=== PATIENT | female | born 1995 | race Caucasian/White ===

== ENCOUNTER → 2016-12-25 | Outpatient (CLI) | payer OTHER | END | disposition home or self-care (01) | LOC: LABWHC1 11:54 | PROVIDERS: ATTEND Obstetrics & Gynecology | DX: Z34.92 Encounter for supervision of normal pregnancy, unspecified, second trimester (principal); Z3A.00 Weeks of gestation of pregnancy not specified | CPT/HCPCS: 36415; 84702 ==

== ENCOUNTER → 2016-12-27 | Outpatient (CLI) | payer OTHER | END | disposition home or self-care (01) | LOC: LABWHC1 13:58 | PROVIDERS: ATTEND Obstetrics & Gynecology | DX: O26.90 Pregnancy related conditions, unspecified, unspecified trimester (principal); Z3A.00 Weeks of gestation of pregnancy not specified | CPT/HCPCS: 36415; 84702 ==

== ENCOUNTER → 2017-03-03 | Outpatient (CLI) | payer OTHER | END | disposition home or self-care (01) | LOC: LABWHC1 15:41 | PROVIDERS: ATTEND Obstetrics & Gynecology | DX: O03.9 Complete or unspecified spontaneous abortion without complication (principal) | CPT/HCPCS: 36415; 84702 ==

== ENCOUNTER → 2017-03-20 | Outpatient (CLI) | payer OTHER ==
--- NOTE | 2017-03-20 17:58 | US ---
EXAMINATION TYPE: US OB >= 14 wk fetus DATE OF EXAM: 03/20/2017 4:09 PM COMPARISON: None CLINICAL HISTORY: O46.91 First Trimester Bleeding. 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 6 oz. WEIGHT PERCENTAGE BASED ON ESTABLISHED DATES: N/A HC/AC: 1.2 Normal FL/AC: 20 Normal HEART RATE: 139 bpm RHYTHM: Normal IMPRESSION: 1. Single intrauterine gestation estimated at 17 0 days gestation based on current ultrasound measure ments. This would have a calculated EDC of 08/28/2017. Cardiac activity at the time this exams 139 bpm . 2. Placenta previa does not appear to be present. Low-lying placenta could be considered. 3. small parts are incompletely evaluated during this exam.
== END | disposition home or self-care (01) ==
LOC: RADUSWWP 15:17
PROVIDERS: ATTEND Obstetrics & Gynecology
DX: O46.91 Antepartum hemorrhage, unspecified, first trimester (principal); Z3A.17 17 weeks gestation of pregnancy
CPT/HCPCS: 76805

== ENCOUNTER → 2017-03-20 | Outpatient (CLI) | payer OTHER ==
[2017-03-20 10:38] LABS: CHCM 34.2; HDW 2.38; HGB 13.4 gm/dL (11.4-16.0); MCHC 35.2 g/dL (31.0-37.0); Mean Platelet Volume 6.5; RBC 4.17 m/uL (3.80-5.40); RDW 13.1 % (11.5-15.5); WBC 12.6 k/uL (4.0-11.0)
[2017-03-20 11:11] LABS: Glucose 84 mg/dL (74-99); Non-African American GFR(MDRD) >60 (>60 ml/min/1.73 sqM)
[2017-03-20 11:38] LABS: Hepatitis B Surface Ag Index 0.07
[2017-03-20 11:52] LABS: HCG,Quantitative Serum 21619.4 mIU/mL
[2017-03-21 04:37] LABS: Toxoplasma Antibody (IgG) <3.0 IU/mL (<7.2)
[2017-03-21 08:07] LABS: HIV-1/HIV-2 Ab Screen NONREAC (NON REAC)
== END | disposition home or self-care (01) ==
LOC: LABWHC1 10:19
PROVIDERS: ATTEND Obstetrics & Gynecology
DX: Z34.90 Encounter for supervision of normal pregnancy, unspecified, unspecified trimester (principal)
CPT/HCPCS: 36415; 82565; 82947; 84702; 85027; 86762; 86777; 86778; 86780; 86850; 86900; 86901; 87340; 87389

== ENCOUNTER → 2017-06-02 | Outpatient (CLI) | payer OTHER ==
[2017-06-02 12:09] LABS: CH 31.3; CHCM 34.3; HCT 36.3 % (34.0-46.0); HDW 2.52; HGB 12.4 gm/dL (11.4-16.0); MCH 31.3 pg (25.0-35.0); MCHC 34.2 g/dL (31.0-37.0); MCV 91.7 fL (80.0-100.0); Mean Platelet Volume 6.7; RBC 3.96 m/uL (3.80-5.40); RDW 12.9 % (11.5-15.5); WBC 13.7 k/uL (4.0-11.0)
== END | disposition home or self-care (01) ==
LOC: LABWHC1 10:32
PROVIDERS: ATTEND Obstetrics & Gynecology
DX: Z34.82 Encounter for supervision of other normal pregnancy, second trimester (principal); Z3A.00 Weeks of gestation of pregnancy not specified
CPT/HCPCS: 36415; 82950; 85027

== ENCOUNTER 2017-08-28 06:03 | Inpatient (IN) | payer OTHER ==
[2017-08-28 06:20] VITALS: BMI 27.1
--- NOTE | 2017-08-28 06:20 | P.HPOB ---
History of Present Illness H&P Date: 08/28/17 Chief Complaint: Elective induction. This patient is a pleasant 21-year-old 2 para 1 female estimated date of confinement 08/28/2017 estimated gestational age 40-0/7 weeks who presents to labor and delivery for requested induction of labor. Patient's care is complicated by late to seek care. Patient also most recently had concerns about STD exposure and was treated with Zithromax although cultures have been negative. otherwise has been uncomplicated. Review of Systems All systems: negative Constitutional: Denies chills, Denies fever Eyes: denies blurred vision, denies pain Ears, nose, mouth and throat: Denies headache, Denies sore throat Cardiovascular: Denies chest pain, Denies shortness of breath Respiratory: Denies cough Gastrointestinal: Denies abdominal pain, Denies diarrhea, Denies nausea, Denies vomiting Genitourinary: Denies dysuria, Denies hematuria Musculoskeletal: Denies myalgias Integumentary: Denies pruritus, Denies rash Neurological: Denies numbness, Denies weakness Psychiatric: Denies anxiety, Denies depression Endocrine: Denies fatigue, Denies weight change Past Medical History Additional Past Medical History / Comment(s): stomach ulcers History of Any Multi-Drug Resistant Organisms: None Reported Past Surgical History: No Surgical Hx Reported Past Anesthesia/Blood Transfusion Reactions: No Reported Reaction Past Psychological History: No Psychological Hx Reported Smoking Status: Current every day smoker Past Alcohol Use History: Occasional Past Drug Use History: None Reported Medications and Allergies Home Medications Medication Instructions Recorded Confirmed Type Pnv,Calcium 72/Iron/Folic Acid 1 tab PO ONCE 08/28/17 08/28/17 History [ Plus Tablet] Allergies Allergy/AdvReac Type Severity Reaction Status Date / Time Penicillins Allergy Anaphylaxis Verified 08/28/17 06:12 Exam - Vital Signs Vital signs: Intake and Output 08/27/17 08/27/17 08/28/17 14:59 22:59 06:59 Other: Weight 73.936 kg Patient Weight 08/28/17 06:59 Weight 73.936 kg - OBG Physical Exam Abdomen: bowel sounds normal, no diffuse tenderness, no bruit present, no guarding noted, no hepatomegaly, no splenomegaly, no mass Vagina: normal moisture, no discharge Cervix: Cervix in the office was 2 cm dilated. Cervix: no lesion, no discharge Uterus: enlarged (Fundal height is 38 cm.) Results blood work shows she is A positive, rubella immune, RPR nonreactive, hepatitis B negative, group B strep was negative, ultrasounds have been normal, Glucola was normal. Assessment and Plan (1) Third trimester Narrative/Plan: This is a pleasant 21-year-old 2 para 1 female 40-0/7 weeks gestation who is admitted to labor and delivery for requested induction of labor. Plan is induction of labor and anticipate vaginal delivery. Status: Acute (2) Elective induction of labor planned Status: Acute
[2017-08-28] MEDS: LACTATED RINGERS 1,000 ML IV SCH ×2 (06:23→12:19)
[2017-08-28] MEDS ORDERED: OXYTOCIN 20 UNITS/1000 ML NS 1,000 ML IV SCH ×2 (06:23→15:05)
[2017-08-28] MEDS ORDERED: TERBUTALINE 1 MG/ML VIAL SQ PRN (06:23)
[2017-08-28] MEDS ORDERED: OXYTOCIN 10 UNIT/ML 1 ML VIAL IM PRN (06:23)
[2017-08-28] MEDS ORDERED: CARBOPROST TROMETHAMINE 250 MCG/ML 1 ML AMP IM PRN (06:23)
[2017-08-28] MEDS ORDERED: LIDOCAINE 1% (PF) 10 MG/ML (30 ML SDV) SQ PRN (06:23)
[2017-08-28] MEDS ORDERED: METHYLERGONOVINE 0.2 MG/ML 1 ML AMP IM PRN (06:23)
[2017-08-28 06:39] LABS: Basophils % (A) 0 %; CH 30.7; CHCM 33.9; Eosinophils # (A) 0.1 k/uL (0-0.7); Eosinophils % (A) 1 %; HCT 37.5 % (34.0-46.0); HDW 3.11; HGB 12.8 gm/dL (11.4-16.0); Luc # (Auto) 0.28; Luc % (Auto) 2; Lymphocytes # (A) 2.7 k/uL (1.0-4.8); Lymphocytes % (A) 20 %; MCH 31.1 pg (25.0-35.0); MCHC 34.2 g/dL (31.0-37.0); MCV 90.9 fL (80.0-100.0); Mean Platelet Volume 7.2; Monocytes # (A) 0.7 k/uL (0-1.0); Monocytes % (A) 5 %; Neutrophils # (A) 9.8 k/uL (1.3-7.7); Neutrophils % (A) 72 %; RBC 4.13 m/uL (3.80-5.40); RDW 13.3 % (11.5-15.5); WBC 13.6 k/uL (4.0-11.0); WBC (Perox) 14.03
[2017-08-28] MEDS ORDERED: fentaNYL (PF) 50 MCG/ML 5 ML AMP ONE (12:26)
[2017-08-28] MEDS ORDERED: SODIUM CHLORIDE 0.9% 100 ML BAG ONE (12:26)
[2017-08-28] MEDS ORDERED: BUPIVACAINE (PF) 0.25% 30 ML VIAL ONE (12:26)
[2017-08-28] MEDS ORDERED: ACETAMINOPHEN TAB 325 MG TAB PO PRN (15:05)
[2017-08-28] MEDS ORDERED: WITCH HAZEL 1 EACH MED..PAD TOPICAL PRN (15:05)
[2017-08-28] MEDS ORDERED: LANOLIN CREAM 5 GM TUBE TOPICAL PRN (15:05)
[2017-08-28] MEDS ORDERED: Acetaminophen-Codeine 300-30mg TAB PO PRN ×2 (15:05)
[2017-08-28] MEDS ORDERED: BISACODYL 10 MG SUPP RECTAL PRN (15:05)
[2017-08-28] MEDS ORDERED: ZOLPIDEM 5 MG TAB PO PRN (15:05)
[2017-08-28] MEDS ORDERED: IBUPROFEN 600 MG TAB PO PRN (15:05)
[2017-08-28] MEDS ORDERED: diphenhydrAMINE 25 MG CAP PO PRN (15:05)
[2017-08-28] MEDS ORDERED: HYDROCORTISONE 2.5% RECTAL CREAM 30 GM TUBE RECTAL PRN (15:05)
[2017-08-28] MEDS ORDERED: BENZOCAINE/MENTHOL SPRAY 1 GM/SPRAY AEROSOL TOPICAL PRN (15:05)
[2017-08-28] MEDS ORDERED: SIMETHICONE 80 MG CHEWABLE PO PRN (15:05)
[2017-08-28] MEDS ORDERED: diphenhydrAMINE 50 MG/ML 1 ML VIAL IVP PRN (15:05)
[2017-08-28 17:15] VITALS: RESP 16
--- NOTE | 2017-08-28 17:44 | P.PROBDLV ---
Vaginal Delivery Note - . Vaginal Delivery Note: Normal vaginal delivery viable male infant Apgars 9 and 9 delivery time is 1407 hrs. Please see dictated H&P for intimate details of this patient's admission. Brief summary this pleasant 21-year-old 2 para 1 female 40-0/7 weeks gestation admitted to labor and delivery for requested induction of labor. Patient is 2-3 cm dilated has artificial rupture membranes for clear fluid. Patient does receive an epidural for pain control with some relief. Labor progresses quickly thereafter she is to complete pushes the head to the perineum. Posterior perineum is supported we have controlled delivery of the infant's head over the intact perineum. Mouth and nares are bulb suctioned. There is no evidence of nuchal cord. Gentle downward traction we have delivery the anterior and posterior shoulder and rest this infant's body. This is a vigorous viable male Apgars are 9 and 9 delivery time is 1407 hrs. After delivery of the the umbilical cord is doubly clamped and cut appears to be trivascular. The placenta is then spontaneously delivered intact. Estimated blood loss 100 mL. No lacerations and no repairs required. All counts are correct 3.
[2017-08-29 01:16] VITALS: TEMP 98.3
[2017-08-29] MEDS: SENNOSIDES-DOCUSATE SODIUM 1 EACH TAB PO SCH ×2 (01:16→04:29)
--- NOTE | 2017-08-29 05:51 | P.PNOBGVD ---
Subjective - Subjective Patient reports: Reports appetite normal, Reports voiding normally, Reports pain well controlled, Reports ambulating normally : doing well Objective - Latest Vital Signs Latest vital signs: Vital Signs Temp Pulse Resp BP Pulse Ox 08/29/17 00:00 98.3 F 59 L 16 108/59 08/28/17 20:00 98.4 F 70 16 115/74 08/28/17 16:15 97.5 F L 65 16 108/68 08/28/17 15:46 72 14 105/58 08/28/17 15:15 69 16 108/55 08/28/17 15:00 82 16 126/78 08/28/17 14:46 76 14 117/83 08/28/17 14:30 90 14 135/88 08/28/17 14:15 96.7 F L 57 L 14 125/97 08/28/17 06:16 96 F L 57 L 16 124/70 98 Intake and Output 08/28/17 08/28/17 08/29/17 14:59 22:59 06:59 Output Total 100 Balance -100 Output: Urine 100 Other: # Voids 1 1 - Exam Lungs: bilateral: normal Chest: Normal S1, Normal S2 Extremities: Present: normal Abdomen: Present: normal appearance, soft Uterus: Present: normal, firm - Labs Labs: Abnormal Lab Results - Last 24 Hours (Table) 08/28/17 Range/Units 06:20 WBC 13.6 H (4.0-11.0) k/uL Neutrophils # 9.8 H (1.3-7.7) k/uL Assessment and Plan (1) Third trimester Narrative/Plan: day #1. Patient is resting without complaints and wishes to go home. Vital signs are stable and she is afebrile. Uterus is firm nontender she 's having normal lochia. My impression is this is a normal course. Plan is to continue routine care discharge home later today. Current Visit: Yes Status: Acute Code(s): Z34.93 - ENCNTR FOR SUPRVSN OF NORMAL PREG, UNSP, THIRD TRIMESTER SNOMED Code(s): 90318395 (2) Elective induction of labor planned Current Visit: Yes Status: Acute Code(s): IHG5708 - SNOMED Code(s): 927830280
--- NOTE | 2017-08-29 05:52 | P.DS ---
Providers Date of admission: 08/28/17 06:03 Expected date of discharge: 08/29/17 Attending physician: Philip Flores Primary care physician: Stated None - Discharge Diagnosis(es) (1) Third trimester Current Visit: Yes Status: Acute (2) Elective induction of labor planned Current Visit: Yes Status: Acute Hospital Course: Please see dictated H&P for intimate details of this patient's admission. Brief summary this is a pleasant 21-year-old 2 para 1 female 40 weeks gestation admitted to labor and delivery for requested induction of labor. Patient is admitted and goes on to have a vaginal delivery viable male . Please see dictated delivery note. Patient's felt be stable for discharge home on day #1 follow up with me in 6 weeks. Procedures: Normal vaginal delivery. Patient Condition at Discharge: Good Plan - Discharge Summary New Discharge Prescriptions: New Acetaminophen-Codeine 300-30mg [Tylenol w/codeine #3] 1 - 2 each PO Q4HR PRN #30 tab PRN Reason: Mild Pain exceeding Tylenol Ibuprofen [Motrin] 600 mg PO Q6HR PRN #40 tab PRN Reason: Mild Pain Or Fever >= 100.5 No Action Pnv,Calcium 72/Iron/Folic Acid [ Plus Tablet] 1 tab PO ONCE Discharge Medication List Pnv,Calcium 72/Iron/Folic Acid [ Plus Tablet] 1 tab PO ONCE 08/28/17 [ History] Acetaminophen-Codeine 300-30mg [Tylenol w/codeine #3] 1 - 2 each PO Q4HR PRN # 30 tab 08/29/17 [Rx] Ibuprofen [Motrin] 600 mg PO Q6HR PRN #40 tab 08/29/17 [Rx] Follow up Appointment(s)/Referral(s): Philip Flores MD [STAFF PHYSICIAN] - 6 Weeks Patient Instructions/Handouts: Vaginal Delivery (DC) Activity/Diet/Wound Care/Special Instructions: No intercourse or anything per vagina for 6 weeks. Please call if any fever, chills, excessive vaginal bleeding, and/or abdominal pain. Discharge Disposition: HOME SELF-CARE
[2017-08-29 07:58] VITALS: BP 114/69; PULSE 55
== END 2017-08-29 16:10 | disposition home or self-care (01) | DRG 560 ==
LOC: 4FBP 06:03
PROVIDERS: ADMIT Obstetrics & Gynecology; ATTEND Obstetrics & Gynecology
PROC: 00HU33Z Insertion of Infusion Device into Spinal Canal, Percutaneous Approach (ICD-10-PCS; principal; 2017-08-28)
PROC: 3E0R3BZ Introduction of Anesthetic Agent into Spinal Canal, Percutaneous Approach (ICD-10-PCS; principal; 2017-08-28)
PROC: 10E0XZZ Delivery of Products of Conception, External Approach (ICD-10-PCS; principal; 2017-08-28)
PROC: 10907ZC Drainage of Amniotic Fluid, Therapeutic from Products of Conception, Via Natural or Artificial Opening (ICD-10-PCS; principal; 2017-08-28)
DX: O48.0 Post-term pregnancy (principal); F17.200 Nicotine dependence, unspecified, uncomplicated; Z37.0 Single live birth; O99.334 Smoking (tobacco) complicating childbirth; Z3A.40 40 weeks gestation of pregnancy; Z88.0 Allergy status to penicillin
CPT/HCPCS: 85025; 88307

== ENCOUNTER 2018-12-11 13:39 | Emergency (ER) | payer OTHER ==
[2018-12-11 13:47] VITALS: TEMP 98.8
[2018-12-11] MEDS ORDERED: SODIUM CHLORIDE 0.9% 1,000 ML IV STA (14:02)
[2018-12-11] MEDS ORDERED: ONDANSETRON 4 MG/2 ML VIAL IVP STA (14:02)
[2018-12-11] MEDS ORDERED: ACETAMINOPHEN IV (For NPO) 1,000 MG in EMPTY BAG 1 BAG IVPB STA (14:06)
--- NOTE | 2018-12-11 14:21 | ED ---
General Adult HPI - General Chief complaint: Abdominal Pain Stated complaint: Lower abd pain, fever Time Seen by Provider: 12/11/18 13:59 Source: patient, RN notes reviewed Mode of arrival: ambulatory Limitations: no limitations - History of Present Illness Initial comments: Patient 23-year-old female presented to the emergency room today with a chief complaint abdominal pain that started yesterday. Patient does admit to pain on the right side of the abdomen. She states that she has felt nauseated. States appetites been decreased. States that when she eats symptoms seemed to increase. Patient denies any other complaints or symptoms currently. Patient denies any recent fever, chills, shortness of breath, chest pain, back pain, numbness or tingling, headaches or visual changes, or any other complaints. - Related Data Home Medications Medication Instructions Recorded Confirmed Escitalopram [Lexapro] 10 mg PO DAILY 12/11/18 12/11/18 Previous Rx's Medication Instructions Recorded Ciprofloxacin HCl [Cipro] 500 mg PO Q12HR #20 day 12/11/18 Allergies Allergy/AdvReac Type Severity Reaction Status Date / Time Penicillins Allergy Anaphylaxis Verified 12/11/18 13:53 Review of Systems ROS Statement: Those systems with pertinent positive or pertinent negative responses have been documented in the HPI. ROS Other: All systems not noted in ROS Statement are negative. Past Medical History Additional Past Medical History / Comment(s): stomach ulcers History of Any Multi-Drug Resistant Organisms: None Reported Past Surgical History: No Surgical Hx Reported Past Anesthesia/Blood Transfusion Reactions: No Reported Reaction Past Psychological History: No Psychological Hx Reported Smoking Status: Current every day smoker Past Alcohol Use History: Occasional Past Drug Use History: None Reported - Past Family History Mother Family Medical History: No Reported History General Exam - General Exam Comments Initial Comments: General: The patient is awake and alert, in no distress, and does not appear acutely ill. Eye: There is normal conjunctiva bilaterally. No signs of icterus. Ears, nose, mouth and throat: There are moist mucous membranes and no oral lesions. Neck: The neck is supple, there is no tenderness or JVD. Cardiovascular: There is a regular rate and rhythm. No murmur, rub or gallop is appreciated. Respiratory: Lungs are clear to auscultation, respirations are non-labored, breath sounds are equal. No wheezes, stridor, rales, or rhonchi. Gastrointestinal: Abdomen is soft on palpation. Patient does have tenderness both in the right upper and right lower quadrants. No rebound, guarding or CVA tenderness. Musculoskeletal: Normal ROM, no tenderness. Strength 5/5. Sensation intact. Pulses equal bilaterally 2+. Neurological: A&O x 3. CN II-XII intact, There are no obvious motor or sensory deficits. Coordination appears grossly intact. Speech is normal. Skin: Skin is warm and dry and no rashes or lesions are noted. Psychiatric: Cooperative, appropriate mood & affect, normal judgment. Limitations: no limitations Course Vital Signs 12/11/18 13:45 Temperature 98.8 F Pulse Rate 118 H Respiratory 20 Rate Blood Pressure 137/82 O2 Sat by Pulse 99 Oximetry Medical Decision Making - Medical Decision Making Patient's labs reviewed and does show a 14,000 white count. Urinalysis consistent with infection. Ultrasound of the gallbladder is negative. CT the abdomen and pelvis to rule out appendicitis was performed which was negative for any evidence of appendicitis. Does show evidence for possible pyelonephritis. Patient given dose of antibiotics here in the emergency room. Treated with a dose of Levaquin here due to ALLERGY to penicillin will be continued on ciprofloxacin at home. She is advised close follow-up the family doctor to have repeat urinalysis and to return here to the emergency room symptoms increase or worsen. She states her stated and is in agreement. - Lab Data Result diagrams: 12/11/18 14:25 12/11/18 14:25 Lab Results 12/11/18 12/11/18 12/11/18 Range/Units 14:25 14:25 14:25 WBC 14.4 H (3.8-10.6) k/uL RBC 4.54 (3.80-5.40) m/uL Hgb 13.6 (11.4-16.0) gm/dL Hct 40.7 (34.0-46.0) % MCV 89.7 (80.0-100.0) fL MCH 30.1 (25.0-35.0) pg MCHC 33.5 (31.0-37.0) g/dL RDW 12.6 (11.5-15.5) % Plt Count 221 (150-450) k/uL Neutrophils % 78 % Lymphocytes % 12 % Monocytes % 8 % Eosinophils % 1 % Basophils % 0 % Neutrophils # 11.2 H (1.3-7.7) k/uL Lymphocytes # 1.7 (1.0-4.8) k/uL Monocytes # 1.1 H (0-1.0) k/uL Eosinophils # 0.2 (0-0.7) k/uL Basophils # 0.0 (0-0.2) k/uL Sodium 137 (137-145) mmol/L Potassium 4.0 (3.5-5.1) mmol/L Chloride 105 (98-107) mmol/L Carbon Dioxide 24 (22-30) mmol/L Anion Gap 8 mmol/L BUN 8 (7-17) mg/dL Creatinine 0.86 (0.52-1.04) mg/dL Est GFR (CKD-EPI)AfAm >90 (>60 ml/min/1.73 sqM) Est GFR (CKD-EPI)NonAf >90 (>60 ml/min/1.73 sqM) Glucose 80 (74-99) mg/dL Calcium 9.1 (8.4-10.2) mg/dL Total Bilirubin 1.5 H (0.2-1.3) mg/dL AST 18 (14-36) U/L ALT 21 (9-52) U/L Alkaline Phosphatase 47 (38-126) U/L Total Protein 5.8 L (6.3-8.2) g/dL Albumin 3.5 (3.5-5.0) g/dL Amylase 41 (30-110) U/L Lipase 36 (23-300) U/L Urine Color Yellow Urine Appearance Turbid H (Clear) Urine pH 5.5 (5.0-8.0) Ur Specific [place] 1.011 (1.001-1.035) Urine Protein 1+ H (Negative) Urine Glucose (UA) Negative (Negative) Urine Ketones Trace H (Negative) Urine Blood Large H (Negative) Urine Nitrite Negative (Negative) Urine Bilirubin Negative (Negative) Urine Urobilinogen <2.0 (<2.0) mg/dL Ur Leukocyte Esterase Large H (Negative) Urine RBC 5 (0-5) /hpf Urine WBC >182 H (0-5) /hpf Urine WBC Clumps Many H (None) /hpf Ur Squamous Epith Cells 16 H (0-4) /hpf Urine Bacteria Moderate H (None) /hpf Urine Mucus Few H (None) /hpf Urine HCG, Qual (Not Detectd) 12/11/18 Range/Units 14:25 WBC (3.8-10.6) k/uL RBC (3.80-5.40) m/uL Hgb (11.4-16.0) gm/dL Hct (34.0-46.0) % MCV (80.0-100.0) fL MCH (25.0-35.0) pg MCHC (31.0-37.0) g/dL RDW (11.5-15.5) % Plt Count (150-450) k/uL Neutrophils % % Lymphocytes % % Monocytes % % Eosinophils % % Basophils % % Neutrophils # (1.3-7.7) k/uL Lymphocytes # (1.0-4.8) k/uL Monocytes # (0-1.0) k/uL Eosinophils # (0-0.7) k/uL Basophils # (0-0.2) k/uL Sodium (137-145) mmol/L Potassium (3.5-5.1) mmol/L Chloride (98-107) mmol/L Carbon Dioxide (22-30) mmol/L Anion Gap mmol/L BUN (7-17) mg/dL Creatinine (0.52-1.04) mg/dL Est GFR (CKD-EPI)AfAm (>60 ml/min/1.73 sqM) Est GFR (CKD-EPI)NonAf (>60 ml/min/1.73 sqM) Glucose (74-99) mg/dL Calcium (8.4-10.2) mg/dL Total Bilirubin (0.2-1.3) mg/dL AST (14-36) U/L ALT (9-52) U/L Alkaline Phosphatase (38-126) U/L Total Protein (6.3-8.2) g/dL Albumin (3.5-5.0) g/dL Amylase (30-110) U/L Lipase (23-300) U/L Urine Color Urine Appearance (Clear) Urine pH (5.0-8.0) Ur Specific [place] (1.001-1.035) Urine Protein (Negative) Urine Glucose (UA) (Negative) Urine Ketones (Negative) Urine Blood (Negative) Urine Nitrite (Negative) Urine Bilirubin (Negative) Urine Urobilinogen (<2.0) mg/dL Ur Leukocyte Esterase (Negative) Urine RBC (0-5) /hpf Urine WBC (0-5) /hpf Urine WBC Clumps (None) /hpf Ur Squamous Epith Cells (0-4) /hpf Urine Bacteria (None) /hpf Urine Mucus (None) /hpf Urine HCG, Qual Not Detected (Not Detectd) Disposition Clinical Impression: Acute pyelonephritis Disposition: HOME SELF-CARE Condition: Good Instructions: Urinary Tract Infection in Women (ED) Additional Instructions: Please use medication as discussed. Please follow-up with family doctor in the next 2 days. Please return to emergency room if the symptoms increase or worsen or for any other concerns. Prescriptions: Ciprofloxacin HCl [Cipro] 500 mg PO Q12HR #20 day Is patient prescribed a controlled substance at d/c from ED?: No Referrals: Alessandro Weller Jr, [Primary Care Provider] - 1-2 days Time of Disposition: 17:18
[2018-12-11 14:40] LABS: Basophils % (A) 0 %; Eosinophils # (A) 0.2 k/uL (0-0.7); Eosinophils % (A) 1 %; HCT 40.7 % (34.0-46.0); HGB 13.6 gm/dL (11.4-16.0); Lymphocytes # (A) 1.7 k/uL (1.0-4.8); Lymphocytes % (A) 12 %; MCH 30.1 pg (25.0-35.0); MCHC 33.5 g/dL (31.0-37.0); MCV 89.7 fL (80.0-100.0); Mean Platelet Volume 6.7; Monocytes # (A) 1.1 k/uL (0-1.0); Monocytes % (A) 8 %; Neutrophils # (A) 11.2 k/uL (1.3-7.7); Neutrophils % (A) 78 %; Platelet Count 221 k/uL (150-450); RBC 4.54 m/uL (3.80-5.40); RDW 12.6 % (11.5-15.5); WBC 14.4 k/uL (3.8-10.6)
[2018-12-11 14:47] LABS: Appearance,Urine Turbid (Clear); Bacteria,Urine Moderate /hpf; Bilirubin,Urine Negative (Negative); Blood,Urine Large (Negative); Color,Urine Yellow; Glucose,Urine (UA) Negative (Negative); Ketones,Urine Trace (Negative); Leukocyte Esterase,Urine Large (Negative); Mucus,Urine Few /hpf; Nitrite,Urine Negative (Negative); PH, Urine 5.5 (5.0-8.0); Protein,Urine 1+ (Negative); RBC,Urine 5 /hpf (0-5); Specific Gravity,Urine 1.011 (1.001-1.035); Squamous Epithelial Cell,Urine 16 /hpf (0-4); Urobilinogen,Urine <2.0 mg/dL (<2.0)
[2018-12-11 14:50] LABS: ALT 21 U/L (9-52); AST 18 U/L (14-36); Albumin 3.5 g/dL (3.5-5.0); Alkaline Phosphatase 47 U/L (38-126); Amylase 41 U/L (30-110); Anion Gap 8 mmol/L; Blood Urea Nitrogen 8 mg/dL (7-17); Calcium 9.1 mg/dL (8.4-10.2); Carbon Dioxide 24 mmol/L (22-30); Chloride 105 mmol/L (98-107); Glucose 80 mg/dL (74-99); Lipase 36 U/L (23-300); Sodium 137 mmol/L (137-145); Total Bilirubin 1.5 mg/dL (0.2-1.3); Total Protein 5.8 g/dL (6.3-8.2)
--- NOTE | 2018-12-11 15:47 | US ---
EXAMINATION TYPE: US abdomen APPY DATE OF EXAM: 12/11/2018 COMPARISON: NONE CLINICAL HISTORY: Pain. RLQ pain x 3 days, nausea, fever APPENDIX AP Diameter (normal < 6mm): 4.8mm Measured outer wall to outer wall. Is the appendix seen in its entirety from the proximal cecum to distal end: yes Is the appendix compressible: area believed to be appendix is compressible Does the appendix wall appear hypervascular: no Is an appendicolith present: no Is there inflammatory changes or free fluid present: no IMPRESSION: 1. No suspicious noncompressible structures to suggest acute appendicitis. The area is incompletely v isualized and clinical management of any suspected appendicitis will be required.
--- NOTE | 2018-12-11 15:49 | US ---
EXAMINATION TYPE: US abdomen limited DATE OF EXAM: 12/11/2018 COMPARISON: NONE CLINICAL HISTORY: Pain. RUQ and RLQ pain pain x 3 days, fever, nausea EXAM MEASUREMENTS: Liver Length: 17.0 cm Gallbladder Wall: 0.1 cm CBD: 0.3 cm Right Kidney: 10.1 x 5.0 x 4.0 cm Pancreas: wnl Liver: There is mild cardiomegaly is 17 cm. Normal less than 15.5 cm. No discrete masses or cysts ar e evident. Gallbladder: wnl Evidence for sonographic Palafox's sign: no CBD: wnl Right Kidney: wnl IMPRESSION: 1. Mild hepatomegaly.
--- NOTE | 2018-12-11 16:53 | CT ---
EXAMINATION TYPE: CT abdomen pelvis w con DATE OF EXAM: 12/11/2018 COMPARISON: None HISTORY: RLQ PAIN CT DLP: 653.3 mGycm Automated exposure control for dose reduction was used. TECHNIQUE: Helical acquisition of images was performed from the lung bases through the pelvis. CONTRAST: Performed without Oral Contrast and with IV Contrast, patient injected with 100 mL of Isovue 300. FINDINGS: Lung bases are clear. There is no pleural effusion. Heart size is normal. Liver spleen pancreas gallbladder appear normal. Bile ducts are not dilated. There is no adrenal mass . The kidneys have normal size and contour. There is 2 cm area of decreased enhancement in the anteri or cortex right kidney. This is persistent on the delayed images. There is no hydronephrosis. Ureters are not dilated. Bladder distends smoothly. There is no inguinal hernia. There is no free fluid in the pelvis. Uterus is anteverted. There is no mesenteric edema or adenopathy. There is no evidence of free air. There is no ascites. The appendix is seen and appears normal. There is no retroperitoneal adenopathy. The bon y structures are intact. There is no evidence of a bowel obstruction. There are no dilated loops. I s ee no intestinal wall thickening. IMPRESSION: NORMAL APPENDIX. HYPODENSE AREA ANTERIOR RIGHT KIDNEY COULD RELATE TO FOCAL PYELONEPHRITIS.
[2018-12-11] MEDS ORDERED: LEVOFLOXACIN 500MG-D5W PMX 500 MG in DEXTROSE/WATER 1 100ML.BAG IVPB STA (17:13)
[2018-12-11 19:08] VITALS: BP 99/60; PULSE 95; RESP 16
== END 2018-12-11 19:07 | disposition home or self-care (01) ==
LOC: EC 13:39
DX: N10 Acute pyelonephritis (principal); F17.200 Nicotine dependence, unspecified, uncomplicated; Z79.899 Other long term (current) drug therapy; Z88.0 Allergy status to penicillin
CPT/HCPCS: 36415; 80053; 82150; 83690; 85025; 81001; 81025; 87086; 76705; 74177; 99284; 96365; 96375 ×2; 96361; J2405; J1956; J0131; Q9967

== ENCOUNTER 2019-07-07 12:12 | Observation (INO) | payer OTHER ==
[2019-07-07] MEDS ORDERED: SODIUM CHLORIDE 0.9% 500 ML 500 ML IV STA (12:46)
[2019-07-07] MEDS ORDERED: ACETAMINOPHEN TAB 500 MG TAB PO STA (12:47)
[2019-07-07] MEDS ORDERED: SODIUM CHLORIDE 0.9% 1,000 ML IV STA (12:49)
--- NOTE | 2019-07-07 12:49 | ED ---
General Adult HPI <Elias Proctor - Last Filed: 07/07/19 17:54> - General Source: patient, RN notes reviewed Mode of arrival: ambulatory Limitations: no limitations <Jason Wilburn - Last Filed: 07/07/19 18:41> - General Chief complaint: Extremity Injury, Upper Stated complaint: arm/chest pain & fever Time Seen by Provider: 07/07/19 12:23 - History of Present Illness Initial comments: 23-year-old female presents to the emergency department for multiple complaints. Patient states that last night around midnight her right axilla started to be painful. States that it hurts to apply pressure to the armpit. States that today approximately 2 hours prior to arrival she felt she developed a fever. S tates that about an hour ago she started to develop right lower quadrant pain. Denies nausea vomiting diarrhea. Denies dysuria. Denies flank pain.Patient has no other complaints at this time including shortness of breath, chest pain, nausea or vomiting, headache, or visual changes. (Jason Wilburn) - Related Data Home Medications Medication Instructions Recorded Confirmed Escitalopram Oxalate [Lexapro] 20 mg PO DAILY 07/07/19 07/07/19 Omeprazole 20 mg PO DAILY 07/07/19 07/07/19 Allergies Allergy/AdvReac Type Severity Reaction Status Date / Time Penicillins Allergy Anaphylaxis Verified 07/07/19 13:12 Review of Systems ROS Other: All systems not noted in ROS Statement are negative. <Elias Proctor - Last Filed: 07/07/19 17:54> ROS Other: All systems not noted in ROS Statement are negative. <Jason Wilburn - Last Filed: 07/07/19 18:41> ROS Statement: Those systems with pertinent positive or pertinent negative responses have been documented in the HPI. Past Medical History Additional Past Medical History / Comment(s): stomach ulcers, heart palpitations History of Any Multi-Drug Resistant Organisms: None Reported Past Surgical History: No Surgical Hx Reported Additional Past Surgical History / Comment(s): oral Past Anesthesia/Blood Transfusion Reactions: No Reported Reaction Past Psychological History: Anxiety, Depression Smoking Status: Current every day smoker Past Alcohol Use History: Occasional Past Drug Use History: None Reported - Past Family History Mother Family Medical History: No Reported History <Akila,Jason P - Last Filed: 07/07/19 18:41> General Exam Limitations: no limitations General appearance: alert, in no apparent distress Head exam: Present: atraumatic, normocephalic, normal inspection Eye exam: Present: normal appearance, PERRL, EOMI. Absent: scleral icterus, conjunctival injection, periorbital swelling ENT exam: Present: normal exam, mucous membranes moist Neck exam: Present: normal inspection, full ROM. Absent: tenderness, meningismus, lymphadenopathy Respiratory exam: Present: normal lung sounds bilaterally. Absent: respiratory distress, wheezes, rales, rhonchi, stridor Cardiovascular Exam: Present: regular rate, normal rhythm, normal heart sounds. Absent: systolic murmur, diastolic murmur, rubs, gallop, clicks GI/Abdominal exam: Present: soft, tenderness (Tender right lower quadrant, tender suprapubic region.), normal bowel sounds. Absent: distended, guarding, rebound, rigid Expanded GI/Abdominal exam: Present: obturator sign, tenderness at McBurney's Point. Absent: psoas sign, heel tap sign, Palafox's sign, Rovsing's sign External exam: Present: normal external exam. Absent: erythema, swelling, lesions, lacerations, ecchymosis Speculum exam: Present: normal speculum exam. Absent: erythema, vaginal discharge, cervical discharge, vaginal bleeding, foreign body, tissue, laceration By manual exam: Present: normal by manual exam. Absent: cervical motion tenderness, adnexal tenderness, adnexal mass, uterine enlargement, uterine tenderness Extremities exam: Present: other (There is mild tenderness noted of the right axilla without any nodules or fluctuance noted. No erythema, no evidence of infection including sinusitis or abscess.) Neurological exam: Present: alert Psychiatric exam: Present: normal affect, normal mood <Jason Wilburn P - Last Filed: 07/07/19 18:41> Course Vital Signs 07/07/19 07/07/19 07/07/19 12:15 13:05 15:41 Temperature 101 F H 98.0 F Pulse Rate 124 H 95 68 Respiratory 20 16 18 Rate Blood Pressure 114/79 115/72 108/64 O2 Sat by Pulse 98 96 97 Oximetry Medical Decision Making - Lab Data Result diagrams: 07/07/19 12:58 07/07/19 12:58 <Elias Proctor - Last Filed: 07/07/19 17:54> - Lab Data Result diagrams: 07/07/19 12:58 07/07/19 12:58 <Jason Wilburn - Last Filed: 07/07/19 18:41> - Medical Decision Making Patient reevaluated and reexamined and resting comfortably in bed. I do agree with. Findings. This includes diagnostic interpretation and treatment plan. Patient states onset of symptoms was last night and fever started this morning. Patient states she is feeling somewhat better at this point. Patient states discomfort is only mild at this time. Right axilla is nontender. No erythema. There is minimal tenderness lateral to the right breast. Abdomen is soft with mild tenderness suprapubic/left lower abdomen. Secondary to unknown cause of fever and symptoms case was discussed in detail with Dr. Queen who is agree able to hold patient and observe. Blood work will be repeated in the morning. Patient updated. (Elias Proctor) 28-year-old female without any significant past medical history presents to the emergency for a chief complaint of right axillary and right abdominal pain. States that right axillary pain started last night around midnight. States that today around 11 AM patient started to feel like she had a fever. About one hour prior to arrival patient started to experience right lower quadrant pain. On visitation patient does have a fever of 101 and a pulse of 124. This did improve after antipyretics and fluids. On exam she has a tender right axilla as well as a tender right lower quadrant of the abdomen. Pelvic exam was performed due to lower abdominal pain with fever, no appreciable vaginal discharge or cervical discharge. No pelvic tenderness. CBC does reveal leukocytosis of 19.4. Tibia unremarkable although mild elevation in bilirubin of 1.4. Chest x-ray shows no acute process. CT of the abdomen and pelvis was ordered due to concern of appendicitis in this patient with right lower quadrant pain and fever. This shows no evidence for acute appendicitis or recurrent pyelonephritis. There is prominent pelvic vasculature that can be seen and pelvic congestion syndrome. Moderate fecal stasis. Given negative CT ultrasound of the gallbladder was ordered given patient's fever, right sided abdominal pain radiating to the axilla which was negative. Dr. Proctor spoke with Dr. Queen. At this time patient will be admitted for observation. (Jason Wilburn) - Lab Data Lab Results 07/07/19 07/07/19 07/07/19 Range/Units 12:58 12:58 12:58 WBC 19.4 H (3.8-10.6) k/uL RBC 4.64 (3.80-5.40) m/uL Hgb 14.1 (11.4-16.0) gm/dL Hct 41.7 (34.0-46.0) % MCV 89.7 (80.0-100.0) fL MCH 30.3 (25.0-35.0) pg MCHC 33.8 (31.0-37.0) g/dL RDW 15.2 (11.5-15.5) % Plt Count 242 (150-450) k/uL Neutrophils % 89 % Lymphocytes % 5 % Monocytes % 4 % Eosinophils % 1 % Basophils % 0 % Neutrophils # 17.4 H (1.3-7.7) k/uL Lymphocytes # 1.0 (1.0-4.8) k/uL Monocytes # 0.7 (0-1.0) k/uL Eosinophils # 0.2 (0-0.7) k/uL Basophils # 0.0 (0-0.2) k/uL Sodium (137-145) mmol/L Potassium (3.5-5.1) mmol/L Chloride (98-107) mmol/L Carbon Dioxide (22-30) mmol/L Anion Gap mmol/L BUN (7-17) mg/dL Creatinine (0.52-1.04) mg/dL Est GFR (CKD-EPI)AfAm (>60 ml/min/1.73 sqM) Est GFR (CKD-EPI)NonAf (>60 ml/min/1.73 sqM) Glucose (74-99) mg/dL Plasma Lactic Acid Devon 0.9 (0.7-2.0) mmol/L Calcium (8.4-10.2) mg/dL Total Bilirubin (0.2-1.3) mg/dL AST (14-36) U/L ALT (9-52) U/L Alkaline Phosphatase (38-126) U/L Total Protein (6.3-8.2) g/dL Albumin (3.5-5.0) g/dL Urine Color Urine Appearance (Clear) Urine pH (5.0-8.0) Ur Specific [place] (1.001-1.035) Urine Protein (Negative) Urine Glucose (UA) (Negative) Urine Ketones (Negative) Urine Blood (Negative) Urine Nitrite (Negative) Urine Bilirubin (Negative) Urine Urobilinogen (<2.0) mg/dL Ur Leukocyte Esterase (Negative) Urine HCG, Qual (Not Detectd) Heterophile Antibody Negative (Negative) Trichomonas Ag (Rapid) (Negative) 07/07/19 07/07/19 07/07/19 Range/Units 12:58 13:00 13:00 WBC (3.8-10.6) k/uL RBC (3.80-5.40) m/uL Hgb (11.4-16.0) gm/dL Hct (34.0-46.0) % MCV (80.0-100.0) fL MCH (25.0-35.0) pg MCHC (31.0-37.0) g/dL RDW (11.5-15.5) % Plt Count (150-450) k/uL Neutrophils % % Lymphocytes % % Monocytes % % Eosinophils % % Basophils % % Neutrophils # (1.3-7.7) k/uL Lymphocytes # (1.0-4.8) k/uL Monocytes # (0-1.0) k/uL Eosinophils # (0-0.7) k/uL Basophils # (0-0.2) k/uL Sodium 141 (137-145) mmol/L Potassium 3.5 (3.5-5.1) mmol/L Chloride 108 H (98-107) mmol/L Carbon Dioxide 22 (22-30) mmol/L Anion Gap 11 mmol/L BUN 7 (7-17) mg/dL Creatinine 0.74 (0.52-1.04) mg/dL Est GFR (CKD-EPI)AfAm >90 (>60 ml/min/1.73 sqM) Est GFR (CKD-EPI)NonAf >90 (>60 ml/min/1.73 sqM) Glucose 95 (74-99) mg/dL Plasma Lactic Acid Devon (0.7-2.0) mmol/L Calcium 9.9 (8.4-10.2) mg/dL Total Bilirubin 1.4 H (0.2-1.3) mg/dL AST 17 (14-36) U/L ALT 15 (9-52) U/L Alkaline Phosphatase 60 (38-126) U/L Total Protein 7.2 (6.3-8.2) g/dL Albumin 4.5 (3.5-5.0) g/dL Urine Color Yellow Urine Appearance Clear (Clear) Urine pH 6.5 (5.0-8.0) Ur Specific [place] 1.019 (1.001-1.035) Urine Protein Negative (Negative) Urine Glucose (UA) Negative (Negative) Urine Ketones Negative (Negative) Urine Blood Negative (Negative) Urine Nitrite Negative (Negative) Urine Bilirubin Negative (Negative) Urine Urobilinogen 2.0 (<2.0) mg/dL Ur Leukocyte Esterase Negative (Negative) Urine HCG, Qual Not Detected (Not Detectd) Heterophile Antibody (Negative) Trichomonas Ag (Rapid) (Negative) 07/07/19 Range/Units 15:00 WBC (3.8-10.6) k/uL RBC (3.80-5.40) m/uL Hgb (11.4-16.0) gm/dL Hct (34.0-46.0) % MCV (80.0-100.0) fL MCH (25.0-35.0) pg MCHC (31.0-37.0) g/dL RDW (11.5-15.5) % Plt Count (150-450) k/uL Neutrophils % % Lymphocytes % % Monocytes % % Eosinophils % % Basophils % % Neutrophils # (1.3-7.7) k/uL Lymphocytes # (1.0-4.8) k/uL Monocytes # (0-1.0) k/uL Eosinophils # (0-0.7) k/uL Basophils # (0-0.2) k/uL Sodium (137-145) mmol/L Potassium (3.5-5.1) mmol/L Chloride (98-107) mmol/L Carbon Dioxide (22-30) mmol/L Anion Gap mmol/L BUN (7-17) mg/dL Creatinine (0.52-1.04) mg/dL Est GFR (CKD-EPI)AfAm (>60 ml/min/1.73 sqM) Est GFR (CKD-EPI)NonAf (>60 ml/min/1.73 sqM) Glucose (74-99) mg/dL Plasma Lactic Acid Devon (0.7-2.0) mmol/L Calcium (8.4-10.2) mg/dL Total Bilirubin (0.2-1.3) mg/dL AST (14-36) U/L ALT (9-52) U/L Alkaline Phosphatase (38-126) U/L Total Protein (6.3-8.2) g/dL Albumin (3.5-5.0) g/dL Urine Color Urine Appearance (Clear) Urine pH (5.0-8.0) Ur Specific [place] (1.001-1.035) Urine Protein (Negative) Urine Glucose (UA) (Negative) Urine Ketones (Negative) Urine Blood (Negative) Urine Nitrite (Negative) Urine Bilirubin (Negative) Urine Urobilinogen (<2.0) mg/dL Ur Leukocyte Esterase (Negative) Urine HCG, Qual (Not Detectd) Heterophile Antibody (Negative) Trichomonas Ag (Rapid) Negative (Negative) Disposition <Elias Proctor - Last Filed: 07/07/19 17:54> Is patient prescribed a controlled substance at d/c from ED?: No Time of Disposition: 18:41 <Jason Wilburn - Last Filed: 07/07/19 18:41> Clinical Impression: Fever, Abdominal pain, Pain in right axilla Disposition: ADMITTED IP TO THIS HOSP Condition: Fair Referrals: Alessandro Weller Jr, DO [Primary Care Provider] - 1-2 days
--- NOTE | 2019-07-07 13:09 | XR ---
EXAMINATION TYPE: XR chest 2V DATE OF EXAM: 07/07/2019 COMPARISON: NONE TECHNIQUE: PA and lateral views submitted. HISTORY: Pain FINDINGS: The lungs are clear and there is no pneumothorax, pleural effusion, or focal pneumonia. No overt fa ilure. IMPRESSION: 1. No acute process.
[2019-07-07 13:22] LABS: Appearance,Urine Clear (Clear); Bilirubin,Urine Negative (Negative); Blood,Urine Negative (Negative); Color,Urine Yellow; Glucose,Urine (UA) Negative (Negative); Ketones,Urine Negative (Negative); Leukocyte Esterase,Urine Negative (Negative); Nitrite,Urine Negative (Negative); PH, Urine 6.5 (5.0-8.0); Protein,Urine Negative (Negative); Specific Gravity,Urine 1.019 (1.001-1.035)
[2019-07-07 13:30] LABS: Basophils % (A) 0 %; Eosinophils # (A) 0.2 k/uL (0-0.7); Eosinophils % (A) 1 %; HCT 41.7 % (34.0-46.0); HGB 14.1 gm/dL (11.4-16.0); Lymphocytes % (A) 5 %; MCH 30.3 pg (25.0-35.0); MCHC 33.8 g/dL (31.0-37.0); MCV 89.7 fL (80.0-100.0); Mean Platelet Volume 7.2; Monocytes # (A) 0.7 k/uL (0-1.0); Monocytes % (A) 4 %; Neutrophils # (A) 17.4 k/uL (1.3-7.7); Neutrophils % (A) 89 %; Platelet Count 242 k/uL (150-450); RBC 4.64 m/uL (3.80-5.40); RDW 15.2 % (11.5-15.5); WBC 19.4 k/uL (3.8-10.6)
[2019-07-07 13:31] LABS: ALT 15 U/L (9-52); AST 17 U/L (14-36); African American GFR (CKD) >90 (>60 ml/min/1.73 sqM); Albumin 4.5 g/dL (3.5-5.0); Alkaline Phosphatase 60 U/L (38-126); Anion Gap 11 mmol/L; Blood Urea Nitrogen 7 mg/dL (7-17); Calcium 9.9 mg/dL (8.4-10.2); Carbon Dioxide 22 mmol/L (22-30); Chloride 108 mmol/L (98-107); Glucose 95 mg/dL (74-99); Potassium 3.5 mmol/L (3.5-5.1); Sodium 141 mmol/L (137-145); Total Bilirubin 1.4 mg/dL (0.2-1.3); Total Protein 7.2 g/dL (6.3-8.2)
--- NOTE | 2019-07-07 15:58 | CT ---
EXAMINATION TYPE: CT abdomen pelvis w con DATE OF EXAM: 07/07/2019 HISTORY: Right armpit pain traveling down mid abdomen. CT DLP: 686.9mGycm Automated Exposure Control for Dose Reduction was Utilized. CONTRAST: CT scan of the abdomen and pelvis is performed with IV Contrast, patient injected with 100 mL of Isov ue 300. COMPARISON: 12/11/2018 FINDINGS: LUNG BASES: Lung bases are well aerated. LIVER/GB: No significant abnormality is appreciated. A fold noted within the gallbladder. No cholelit hiasis. PANCREAS: No ductal dilatation. SPLEEN: No splenomegaly. ADRENALS: No nodularity or thickening. KIDNEYS: Very subtle scarring is seen is cortical retraction in the previously delineated area of [place] lonephritis on the exam of 12/11/2018. No hydronephrosis of either kidney. BOWEL: No dilated large or small bowel. There is a moderate degree colonic fecal stasis Appendix is midline on coronal imaging and appears within normal limits in size with air noted proximally. No per iappendiceal fat stranding is seen. UTERUS/ADNEXA: Prominent vasculature is seen within the bilateral adnexa with follicular changes of t he ovaries, likely physiologic. LYMPH NODES: No greater than 1cm abdominal or pelvic lymph nodes are appreciated. OSSEOUS STRUCTURES: No significant abnormality is seen. OTHER: The density in the right lateral chest wall on the most superior image and oblique represents the inferior margin of the right scapula is noted in this patient with right axillary pain per histor y. IMPRESSION: 1. No CT evidence of acute appendicitis or recurrent pyelonephritis in this patient with right-sided pain and history of pyelonephritis. 2. Prominent pelvic vasculature can be seen in pelvic congestion syndrome. 3. Moderate degree colonic fecal stasis..
--- NOTE | 2019-07-07 17:23 | US ---
EXAMINATION TYPE: US abdomen limited DATE OF EXAM: 07/07/2019 COMPARISON: NONE CLINICAL HISTORY: Pain. Generalized pain. NPO per patient. EXAM MEASUREMENTS: Liver Length: 18.1 cm Gallbladder Wall: 0.2 cm CBD: 0.3 cm Right Kidney: 9.2 x 4.4 x 4.5 cm Pancreas: wnl Liver: wnl Gallbladder: wnl Evidence for sonographic Palafox's sign: neg CBD: wnl Right Kidney: wnl IMPRESSION: Negative right upper quadrant abdominal sonogram. No gallstones or dilated ducts.
[2019-07-07] MEDS ORDERED: ONDANSETRON 4 MG/2 ML VIAL IVP PRN (18:32)
[2019-07-07] MEDS ORDERED: KETOROLAC 30 MG/ML 1 ML VIAL IVP PRN (18:32)
[2019-07-07] MEDS ORDERED: NALOXONE 0.4 MG/ML 1 ML VIAL IV PRN (18:32)
[2019-07-07] MEDS: SODIUM CHLORIDE 0.9% 1,000 ML IV SCH (20:20)
[2019-07-07 20:55] VITALS: BMI 25.0
[2019-07-07] MEDS ORDERED: ACETAMINOPHEN TAB 325 MG TAB PO PRN (23:22)
[2019-07-07] MEDS ORDERED: IBUPROFEN 600 MG TAB PO PRN (23:23)
[2019-07-07] MEDS ORDERED: LEVOFLOXACIN 750MG-D5W PMX 750 MG in DEXTROSE/WATER 1 150ML.BAG IVPB STA (23:47)
[2019-07-08 08:51] VITALS: RESP 16
[2019-07-08 09:17] LABS: Basophils % (A) 0 %; Eosinophils # (A) 0.1 k/uL (0-0.7); Eosinophils % (A) 1 %; HCT 37.5 % (34.0-46.0); HGB 12.7 gm/dL (11.4-16.0); Lymphocytes # (A) 1.2 k/uL (1.0-4.8); Lymphocytes % (A) 11 %; MCH 30.5 pg (25.0-35.0); MCHC 33.8 g/dL (31.0-37.0); MCV 90.3 fL (80.0-100.0); Mean Platelet Volume 6.8; Monocytes # (A) 0.6 k/uL (0-1.0); Monocytes % (A) 6 %; Neutrophils # (A) 8.6 k/uL (1.3-7.7); Neutrophils % (A) 81 %; Platelet Count 223 k/uL (150-450); RBC 4.16 m/uL (3.80-5.40); WBC 10.5 k/uL (3.8-10.6)
[2019-07-08 09:18] LABS: ALT 14 U/L (9-52); AST 13 U/L (14-36); African American GFR (CKD) >90 (>60 ml/min/1.73 sqM); Albumin 3.5 g/dL (3.5-5.0); Alkaline Phosphatase 43 U/L (38-126); Amylase 42 U/L (30-110); Anion Gap 6 mmol/L; Blood Urea Nitrogen 7 mg/dL (7-17); Calcium 9.1 mg/dL (8.4-10.2); Carbon Dioxide 22 mmol/L (22-30); Chloride 111 mmol/L (98-107); Glucose 97 mg/dL (74-99); Potassium 4.1 mmol/L (3.5-5.1); Sodium 139 mmol/L (137-145); Total Protein 6.1 g/dL (6.3-8.2)
[2019-07-08] MEDS ORDERED: SENNOSIDES-DOCUSATE SODIUM 1 EACH TAB PO SCH (12:30)
--- NOTE | 2019-07-08 12:31 | P.HPIM ---
History of Present Illness H&P Date: 07/08/19 Chief Complaint: Right armpit and abdominal pain, fevers This a 23-year-old female with medical history of stomach ulcers, pyelonephritis, heart palpitations, ADHD, anxiety, depression, ongoing nicotine dependence presented to the ER with complaints of right armpit and abdominal pain, fevers. Complains of right axilla pain since the night before last, eased up, then developed right upper to right lower quadrant abdominal pain with development of fever shortly thereafter. Denies flank pain. Denies fever or chills. Denies nausea vomiting or diarrhea. Reports last bowel movement 2 days ago, normal . Denies dysuria, frequency. Denies lightheadedness dizziness or focal deficits. Denies syncope. Denies bilateral breast tenderness or nipple discharge. Reports she regularly follows with health Department for [facility] visits, last one June 2018. Currently in a monogamous relationship, prior relationships not monogamous and followed frequently with the health department. Denies chest pain, palpitations or shortness of breath. Chest x-ray reporting nonacute. Abdomen soft pelvis CT reported no significant abnormality of the liver/gallbladder, fold noted within the gallbladder with no cholelithiasis ,no evidence of acute appendicitis or recurrent pyelonephritis, prominent pelvic vasculature, no greater than 1 cm abdominal or pelvic lymph nodes,moderate degree colonic fecal stasis. T-max 102.4, WBC 19.4 on admission, now down to 10.4.VSS, UA negative. IV fluids, IV antibiotics of Levaquin initiated. Review of Systems ROS Other: All systems not noted in ROS Statement are negative. ROS Statement: Those systems with pertinent positive or pertinent negative responses have been documented in the HPI. Past Medical History Additional Past Medical History / Comment(s): stomach ulcers, heart palpitations, pyelonephritis History of Any Multi-Drug Resistant Organisms: None Reported Past Surgical History: No Surgical Hx Reported Additional Past Surgical History / Comment(s): wisdom teeth Past Anesthesia/Blood Transfusion Reactions: No Reported Reaction Past Psychological History: ADD/ADHD, Anxiety, Depression Smoking Status: Current every day smoker Past Alcohol Use History: Occasional Past Drug Use History: None Reported - Past Family History Mother Family Medical History: Thyroid Disorder Father Additional Family Medical History / Comment(s): anxiety, depression Brother(s) Additional Family Medical History / Comment(s): bipolar Sister(s) Additional Family Medical History / Comment(s): anxiety, depression Medications and Allergies Home Medications Medication Instructions Recorded Confirmed Type Escitalopram Oxalate [Lexapro] 20 mg PO DAILY 07/07/19 07/07/19 History Omeprazole 20 mg PO DAILY 07/07/19 07/07/19 History Allergies Allergy/AdvReac Type Severity Reaction Status Date / Time Penicillins Allergy Anaphylaxis Verified 07/07/19 13:12 Physical Exam Vitals: Vital Signs Temp Pulse Pulse Resp BP BP Pulse Ox 07/08/19 08:29 98.7 F 82 16 96/62 96 07/08/19 02:08 101.1 F H 103 H 18 102/53 96 07/07/19 23:12 102.4 F H 99 18 99 07/07/19 20:34 98.7 F 83 16 103/67 97 07/07/19 19:07 98.3 F 85 18 104/63 99 07/07/19 15:41 98.0 F 68 18 108/64 97 07/07/19 13:05 95 16 115/72 96 07/07/19 12:15 101 F H 124 H 20 114/79 98 PHYSICAL EXAM: VITAL SIGNS: As above GENERAL: Sitting up in bed, no acute distress HEENT: Conjunctivae normal. eyes normal. Oral mucosa moist. Mild Mandible tenderness NECK: No JVD. No thyroid enlargement. No LNs. Mild bilateral lateral neck tenderness. CARDIOVASCULAR: S1, S2 regular.No murmur RESPIRATION: Breath sounds diminished in the bases. No rhonchi or crackles. No bronchial breathing. ABDOMEN: Soft, periumbilical and bilateral lower quadrant tenderness. No guarding. no masses palpable. No ascites, No hepatosplenomegaly.Bowel sounds heard. LEGS: No edema. no swelling. PSYCHIATRY: Alert and oriented X3, mood and affect normal. NERVOUS SYSTEM: Cranial N 2-12 grossly normal. Moves all 4 limbs. No focal deficits. Strength and sensation grossly intact.. Skin: no lesions, no rash. Right anterior axilla tenderness without mass palpated, no edema. Joints: No active swelling. No inflammation. Lymphatic system. No LN neck axilla or groin. Results CBC & Chem 7: 07/08/19 08:45 07/08/19 08:45 Labs: Abnormal Lab Results - Last 24 Hours (Table) 07/07/19 07/07/19 07/08/19 Range/Units 12:58 12:58 08:45 WBC 19.4 H (3.8-10.6) k/uL Neutrophils # 17.4 H 8.6 H (1.3-7.7) k/uL Chloride 108 H (98-107) mmol/L Total Bilirubin 1.4 H (0.2-1.3) mg/dL AST (14-36) U/L Total Protein (6.3-8.2) g/dL 07/08/19 Range/Units 08:45 WBC (3.8-10.6) k/uL Neutrophils # (1.3-7.7) k/uL Chloride 111 H (98-107) mmol/L Total Bilirubin (0.2-1.3) mg/dL AST 13 L (14-36) U/L Total Protein 6.1 L (6.3-8.2) g/dL Thrombosis Risk Factor Assmnt - Choose All That Apply Any of the Below Risk Factors Present?: No Other Risk Factors: No Other congenital or acquired thrombophilia - If yes, enter type in comment: No Thrombosis Risk Factor Assessment Level: Very Low Risk Assessment and Plan Assessment: -General malaise tenderness of the right anterior axilla,periumbilical and bilateral lower quadrant abdomen, with fevers, etiology unclear, possibly viral. Workup in progress -History of stomach ulcers -History of pyelonephritis -ADHD -Anxiety, depression -Ongoing nicotine dependence -prominent pelvic vasculature per CT, recommend outpatient follow-up with [employer] [employer] -moderate degree colonic fecal stasis. Plan: Continue current medication regime ,monitoring and symptomatic treatment. Workup in progress ruling out influenza, strept, VDRL/EBV titers, GCC/Chlamydia. Measles mumps rubella titers. Maintain IV antibiotics of Levaquin, pain control with Toradol, Tylenol. Blood cultures pending. Further recommendations to follow. The impression and plan of care has been dictated as directed. : I performed a history and examination of this patient, discussed the same with the dictator. I agree with the dictator's note ,documented as a scribe. Any additional findings or plans will be noted.
[2019-07-08] MEDS ORDERED: PANTOPRAZOLE 40 MG/10 ML VIAL IVP SCH (12:45)
[2019-07-08 12:51] VITALS: BP 96/63; PULSE 54; TEMP 97.5
[2019-07-08] MEDS: SODIUM CHLORIDE 0.9% 1,000 ML IV SCH (13:08)
[2019-07-08 15:05] LABS: C. trachomatis,PCR Negative (Neg,Equiv); Chlamydia trachomatis Source Vagina; N. gonorrhoeae,PCR Negative (Neg,Equiv); Neisseria Source Vagina
[2019-07-08 19:24] LABS: EBV-EA (IgG) <0.2 AI; EBV-EBNA(IgG) >8.0 AI
[2019-07-08] MEDS ORDERED: LEVOFLOXACIN 750 MG TAB PO SCH (21:00)
== END 2019-07-08 16:50 ==
LOC: EC 12:12 → 6PED 17:56
PROVIDERS: ADMIT Family Medicine; ATTEND Family Medicine
DX: R53.81 Other malaise (principal); M79.621 Pain in right upper arm; R10.33 Periumbilical pain; R10.32 Left lower quadrant pain; R10.31 Right lower quadrant pain; R50.9 Fever, unspecified; Z87.11 Personal history of peptic ulcer disease; F90.9 Attention-deficit hyperactivity disorder, unspecified type; F41.9 Anxiety disorder, unspecified; F32.9 Major depressive disorder, single episode, unspecified; F17.200 Nicotine dependence, unspecified, uncomplicated; N94.89 Other specified conditions associated with female genital organs and menstrual cycle; K59.8 Other specified functional intestinal disorders; R07.9 Chest pain, unspecified; E80.7 Disorder of bilirubin metabolism, unspecified; R10.11 Right upper quadrant pain; D72.829 Elevated white blood cell count, unspecified; Z86.19 Personal history of other infectious and parasitic diseases; Z79.899 Other long term (current) drug therapy; Z88.0 Allergy status to penicillin; Z81.8 Family history of other mental and behavioral disorders; Z83.49 Family history of other endocrine, nutritional and metabolic diseases
CPT/HCPCS: 96365; 96375 ×2; 96361; 99285; 36415; 86762; 86665 ×2; 80053 ×2; 86663; 82150; 86215; 83605; 83690; 85025 ×2; 86308; 81003; 81025; 87040; 87808; 86664; 86060; 87491; 87591; 87502; 86735; 86765; 71046; 76705; 74177; G0378 ×2; J1885; J1956; C9113; Q9967

== ENCOUNTER 2021-08-08 14:44 | Emergency (ER) | payer OTHER ==
[2021-08-08 14:52] VITALS: TEMP 98.3
--- NOTE | 2021-08-08 15:50 | XR ---
EXAMINATION TYPE: XR chest 2V DATE OF EXAM: 08/08/2021 COMPARISON: 07/07/2019 INDICATION: Carbon monoxide exposure TECHNIQUE: Frontal and lateral views of the chest are obtained. FINDINGS: The heart size is normal. The pulmonary vasculature is normal. The lungs are clear. Bilateral nipple piercings are present. IMPRESSION: 1. No acute pulmonary process.
--- NOTE | 2021-08-08 16:30 | ED ---
General Adult HPI - General Chief complaint: Shortness of Breath Stated complaint: [facility] Possible Carbon Monoxide Source: patient Mode of arrival: ambulatory Limitations: no limitations - History of Present Illness Initial comments: 25-year-old female presents to the emergency room for possible carbon monoxide exposure. Patient was at work today when there was an electrical problem in the air conditioning and it was leaking fumes. Pt was concerned that she could have carbon monoxide exposure. Patient denies any shortness of breath. Planes of some mild "brain fog." Denies any other symptoms.Patient has no other complaints at this time including shortness of breath, chest pain, abdominal pain, nausea or vomiting, headache, or visual changes. - Related Data Home Medications Medication Instructions Recorded Confirmed Escitalopram Oxalate [Lexapro] 20 mg PO DAILY 07/07/19 07/07/19 Omeprazole 20 mg PO DAILY 07/07/19 07/07/19 Allergies Allergy/AdvReac Type Severity Reaction Status Date / Time Penicillins Allergy Anaphylaxis Verified 08/08/21 14:49 Review of Systems ROS Statement: Those systems with pertinent positive or pertinent negative responses have been documented in the HPI. ROS Other: All systems not noted in ROS Statement are negative. Past Medical History Additional Past Medical History / Comment(s): stomach ulcers, heart palpitations, pyelonephritis History of Any Multi-Drug Resistant Organisms: None Reported Past Surgical History: No Surgical Hx Reported Additional Past Surgical History / Comment(s): wisdom teeth Past Anesthesia/Blood Transfusion Reactions: No Reported Reaction Past Psychological History: ADD/ADHD, Anxiety, Depression Smoking Status: Vaper Past Alcohol Use History: Occasional Past Drug Use History: None Reported - Past Family History Mother Family Medical History: Thyroid Disorder Father Additional Family Medical History / Comment(s): anxiety, depression Brother(s) Additional Family Medical History / Comment(s): bipolar Sister(s) Additional Family Medical History / Comment(s): anxiety, depression General Exam Limitations: no limitations General appearance: alert, in no apparent distress Head exam: Present: atraumatic Eye exam: Present: normal appearance, PERRL, EOMI. Absent: scleral icterus, conjunctival injection ENT exam: Present: normal exam, mucous membranes moist Neck exam: Present: normal inspection, full ROM. Absent: tenderness Respiratory exam: Present: normal lung sounds bilaterally. Absent: respiratory distress, wheezes Cardiovascular Exam: Present: regular rate, normal rhythm, normal heart sounds GI/Abdominal exam: Present: soft, normal bowel sounds. Absent: distended, tenderness Neurological exam: Present: alert Course Vital Signs 08/08/21 08/08/21 14:49 15:31 Temperature 98.3 F Pulse Rate 65 Respiratory 18 18 Rate Blood Pressure 136/83 O2 Sat by Pulse 98 Oximetry Medical Decision Making - Medical Decision Making Vitals are stable. Patient is well-appearing. No respiratory distress. No coughing. Chest x-ray shows no acute pulmonary process. Carbon monoxide level is normal for a nonsmoker a 1.5. Patient can be discharged to follow up with primary care. Will return here for any worsening symptoms. - Lab Data Lab Results 08/08/21 Range/Units 15:48 Carbon Monoxide, Quant 1.5 (<10.0) % Disposition Clinical Impression: Exposure to industrial fumes Disposition: HOME SELF-CARE Condition: Good Instructions (If sedation given, give patient instructions): Smoke Inhalation (ED) Additional Instructions: Please follow-up with your doctor in one to 2 days. Return to the emergency room for any worsening symptoms. Is patient prescribed a controlled substance at d/c from ED?: No Referrals: Curt Henry MD [REFERRING] - 1-2 days Time of Disposition: 16:29
[2021-08-08 16:47] VITALS: BP 120/68; PULSE 53; RESP 16
== END 2021-08-08 16:46 | disposition home or self-care (01) ==
LOC: EC 14:44
DX: Z77.098 Contact with and (suspected) exposure to other hazardous, chiefly nonmedicinal, chemicals (principal); F32.9 Major depressive disorder, single episode, unspecified; F41.9 Anxiety disorder, unspecified; F90.9 Attention-deficit hyperactivity disorder, unspecified type; F17.290 Nicotine dependence, other tobacco product, uncomplicated; Z88.0 Allergy status to penicillin
CPT/HCPCS: 71046; 82375; 99284

== ENCOUNTER 2022-12-19 16:53 | Emergency (ER) | payer OTHER ==
[2022-12-19 16:59] VITALS: BP 130/90; PULSE 64; RESP 16; TEMP 97.6
[2022-12-19] MEDS ORDERED: METOCLOPRAMIDE 5 MG/ML 2 ML VIAL IVP STA (17:24)
[2022-12-19] MEDS ORDERED: SODIUM CHLORIDE 0.9% 1,000 ML IV STA (17:24)
--- NOTE | 2022-12-19 17:29 | ED ---
Dizziness HPI - General Chief Complaint: Dizziness Stated Complaint: HTN,Dizziness Time Seen by Provider: 12/19/22 17:09 Source: patient, RN notes reviewed Mode of arrival: ambulatory Limitations: no limitations - History of Present Illness Initial Comments: This is a 27-year-old female who presents to the emergency department for dizziness. 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 States that during work today, she started to feel dizzy and lightheaded. She had a nurse check her blood pressure and states that it was approximately 140/90. States that she has had plenty to eat today. She does have a history of vertigo, but states that this always occurs after she has a concussion. Denies any recent head injuries, states that her last concussion was 2 years ago. She is concerned because she does not know what could've brought this episode on. Symptoms are most prominent when turning her head to the right. Denies any fevers, chills, sore throat, cough, dyspnea, chest pain, palpitations, abdominal pain, nausea, vomiting, diarrhea, or back pain. MD Complaint: dizziness, lightheadedness Description: "room spinning" History of Same: Yes History of Trauma: No - Related Data Home Medications Medication Instructions Recorded Confirmed Escitalopram Oxalate [Lexapro] 20 mg PO DAILY 07/07/19 07/07/19 Omeprazole 20 mg PO DAILY 07/07/19 07/07/19 Previous Rx's Medication Instructions Recorded Metoclopramide [Reglan] 10 mg PO Q6H PRN #20 tab 12/19/22 Allergies Allergy/AdvReac Type Severity Reaction Status Date / Time Penicillins Allergy Anaphylaxis Verified 08/08/21 14:49 Review of Systems ROS Statement: Those systems with pertinent positive or pertinent negative responses have been documented in the HPI. ROS Other: All systems not noted in ROS Statement are negative. Past Medical History Additional Past Medical History / Comment(s): stomach ulcers, heart palpitations, pyelonephritis History of Any Multi-Drug Resistant Organisms: None Reported Past Surgical History: No Surgical Hx Reported Additional Past Surgical History / Comment(s): wisdom teeth Past Anesthesia/Blood Transfusion Reactions: No Reported Reaction Past Psychological History: ADD/ADHD, Anxiety, Depression Smoking Status: Vaper Past Alcohol Use History: Occasional Past Drug Use History: None Reported - Past Family History Mother Family Medical History: Thyroid Disorder Father Additional Family Medical History / Comment(s): anxiety, depression Brother(s) Additional Family Medical History / Comment(s): bipolar Sister(s) Additional Family Medical History / Comment(s): anxiety, depression General Exam Limitations: no limitations General appearance: alert, in no apparent distress Head exam: Present: atraumatic, normocephalic, normal inspection Eye exam: Present: normal appearance, PERRL, EOMI. Absent: scleral icterus, conjunctival injection, periorbital swelling ENT exam: Present: TM's normal bilaterally, normal external ear exam Neck exam: Present: normal inspection. Absent: tenderness, meningismus, lymphadenopathy Respiratory exam: Present: normal lung sounds bilaterally. Absent: respiratory distress, wheezes, rales, rhonchi, stridor Cardiovascular Exam: Present: regular rate, normal rhythm, normal heart sounds. Absent: systolic murmur, diastolic murmur, rubs, gallop, clicks Neurological exam: Present: alert, oriented X3, CN II-XII intact Psychiatric exam: Present: normal affect, normal mood Skin exam: Present: warm, dry, intact, normal color. Absent: rash Course Vital Signs 12/19/22 16:57 Temperature 97.6 F Pulse Rate 64 Respiratory 16 Rate Blood Pressure 130/90 O2 Sat by Pulse 100 Oximetry Medical Decision Making - Medical Decision Making This is a 27-year-old female who presents to the emergency department for dizziness. Was pt. sent in by a medical professional or institution? @ -No Did you speak to anyone other than the patient for history? @ -No Did you review nursing and triage notes? @ -Yes, and I agree, it is accurate with regards to the patient's symptoms. Were old charts reviewed? @ -No Differential Diagnosis? @ -Differential Dizziness: Benign paroxysmal positional Vertigo, Menieres disease, otitis media, acoustic neuroma, vertebrobasilar insufficiency, cerebellar stroke, encephalitis, hypovolemic, arrhythmia, coronary artery syndrome, anemia, this is not meant to be an all-inclusive list EKG interpreted by me (3pts min.)? @ -Sinus bradycardia. Ventricular rate 48 bpm, MS interval 154 ms, QRS duration 100 ms, QTC 410 ms. Pt states that her heart rate is always in the 40s- 50s. What testing was considered but not performed? (CT, X-rays, U/S, labs)? Why? @ -None What meds were considered but not given? Why? @ -None Did you discuss the management of the patient with other professionals? @ -No Did you reconcile home meds? @ -No Was smoking cessation discussed for >3mins.? @ -No Was critical care preformed (if so, how long)? @ -No Were there social determinants of health that impacted care today? How? (Homelessness, low income, unemployed, alcoholism, drug addiction, transportation, low edu. Level, literacy, decrease access to med. care, long-term, rehab)? @ -No Was there de-escalation of care discussed even if they declined? (Discuss DNR or withdrawal of care, Hospice)? @ -No What co-morbidities impacted this encounter? (DM, HTN, Smoking, COPD, CAD, Cancer, CVA, Hep., AIDS, mental health diagnosis, sleep apnea, morbid obesity)? @ -None Was patient admitted / discharged? @ -Discharged. Lab work obtained and found to be nonactionable. UA findings related to the patient being on her period. She was given IV fluids and Reglan, which essentially resolved her symptoms. We opted to go with Reglan over Antivert, as patient states that with her children she does not want anything that is sedating. There is no indication for a CT scan, as she is experiencing symptoms consistent with her prior episodes of vertigo and there were no signs of a central lesion on description of her symptoms or physical examination. Prescription for Reglan provided with dosing instructions reviewed. Discussed that she can also use [id number] antihistamines. Also advised she look up the half somersault maneuver by Dr. Jazzmine Allison for additional treatment options. Undiagnosed new problem with uncertain prognosis? @ -None Drug Therapy requiring intensive monitoring for toxicity (Heparin, Nitro, Insulin, Cardizem)? @ -None Were any procedures done? @ -None Diagnosis/symptom? @ -BPPV Acute, or Chronic, or Acute on Chronic? @ -Acute Uncomplicated (without systemic symptoms) or Complicated (systemic symptoms)? @ -Uncomplicated Side effects of treatment? @ -None Exacerbation, Progression, or Severe Exacerbation] @ -Not applicable Poses a threat to life or bodily function? @ -No Return precautions reviewed in depth, the patient is instructed to return to the emergency department with any new, worsening, or concerning symptoms. Patient verbalized understanding. This case was discussed in detail with the attending ED physician, Dr. Smith. Presentation, findings, and treatment plan discussed in detail as well. - Lab Data Result diagrams: 12/19/22 17:59 12/19/22 17:59 Lab Results 12/19/22 12/19/22 12/19/22 Range/Units 17:33 17:36 17:36 WBC (3.8-10.6) k/uL RBC (3.80-5.40) m/uL Hgb (11.4-16.0) gm/dL Hct (34.0-46.0) % MCV (80.0-100.0) fL MCH (25.0-35.0) pg MCHC (31.0-37.0) g/dL RDW (11.5-15.5) % Plt Count (150-450) k/uL MPV Neutrophils % % Lymphocytes % % Monocytes % % Eosinophils % % Basophils % % Neutrophils # (1.3-7.7) k/uL Lymphocytes # (1.0-4.8) k/uL Monocytes # (0-1.0) k/uL Eosinophils # (0-0.7) k/uL Basophils # (0-0.2) k/uL Sodium (137-145) mmol/L Potassium (3.5-5.1) mmol/L Chloride (98-107) mmol/L Carbon Dioxide (22-30) mmol/L Anion Gap mmol/L BUN (7-17) mg/dL Creatinine (0.52-1.04) mg/dL Est GFR (CKD-EPI)AfAm (>60 ml/min/1.73 sqM) Est GFR (CKD-EPI)NonAf (>60 ml/min/1.73 sqM) Glucose (74-99) mg/dL Calcium (8.4-10.2) mg/dL Total Bilirubin (0.2-1.3) mg/dL AST (14-36) U/L ALT (4-34) U/L Alkaline Phosphatase (38-126) U/L Troponin I (0.000-0.034) ng/mL Total Protein (6.3-8.2) g/dL Albumin (3.5-5.0) g/dL TSH (0.465-4.680) mIU/L Urine Color Yellow Urine Appearance Cloudy H (Clear) Urine pH 5.5 (5.0-8.0) Ur Specific Gordon 1.019 (1.001-1.035) Urine Protein Trace H (Negative) Urine Glucose (UA) Negative (Negative) Urine Ketones Negative (Negative) Urine Blood Large H (Negative) Urine Nitrite Negative (Negative) Urine Bilirubin Negative (Negative) Urine Urobilinogen <2.0 (<2.0) mg/dL Ur Leukocyte Esterase Large H (Negative) Urine RBC 4 (0-5) /hpf Urine WBC 45 H (0-5) /hpf Urine WBC Clumps Few H (None) /hpf Ur Squamous Epith Cells 7 H (0-4) /hpf Amorphous Sediment Few H (None) /hpf Urine Bacteria Moderate H (None) /hpf Urine Mucus Many H (None) /hpf Urine HCG, Qual Not Detected (Not Detectd) Urine Opiates Screen Not Detected (NotDetected) Ur Oxycodone Screen Not Detected (NotDetected) Urine Methadone Screen Not Detected (NotDetected) Ur Propoxyphene Screen Not Detected (NotDetected) Ur Barbiturates Screen Not Detected (NotDetected) U Tricyclic Antidepress Not Detected (NotDetected) Ur Phencyclidine Scrn Not Detected (NotDetected) Ur Amphetamines Screen Not Detected (NotDetected) U Methamphetamines Scrn Not Detected (NotDetected) U Benzodiazepines Scrn Not Detected (NotDetected) Urine Cocaine Screen Not Detected (NotDetected) U Marijuana (THC) Screen Not Detected (NotDetected) Influenza Type A (PCR) Not Detected (Not Detectd) Influenza Type B (PCR) Not Detected (Not Detectd) RSV (PCR) Not Detected (Not Detectd) SARS-CoV-2 (PCR) Not Detected (Not Detectd) 12/19/22 12/19/22 12/19/22 Range/Units 17:59 17:59 17:59 WBC 7.1 (3.8-10.6) k/uL RBC 4.26 (3.80-5.40) m/uL Hgb 12.7 (11.4-16.0) gm/dL Hct 36.3 (34.0-46.0) % MCV 85.2 (80.0-100.0) fL MCH 29.7 (25.0-35.0) pg MCHC 34.9 (31.0-37.0) g/dL RDW 12.2 (11.5-15.5) % Plt Count 251 (150-450) k/uL MPV 7.0 Neutrophils % 61 % Lymphocytes % 29 % Monocytes % 6 % Eosinophils % 2 % Basophils % 1 % Neutrophils # 4.3 (1.3-7.7) k/uL Lymphocytes # 2.1 (1.0-4.8) k/uL Monocytes # 0.4 (0-1.0) k/uL Eosinophils # 0.1 (0-0.7) k/uL Basophils # 0.0 (0-0.2) k/uL Sodium 137 (137-145) mmol/L Potassium 3.9 (3.5-5.1) mmol/L Chloride 103 (98-107) mmol/L Carbon Dioxide 27 (22-30) mmol/L Anion Gap 7 mmol/L BUN 6 L (7-17) mg/dL Creatinine 0.78 (0.52-1.04) mg/dL Est GFR (CKD-EPI)AfAm >90 (>60 ml/min/1.73 sqM) Est GFR (CKD-EPI)NonAf >90 (>60 ml/min/1.73 sqM) Glucose 82 (74-99) mg/dL Calcium 9.2 (8.4-10.2) mg/dL Total Bilirubin 0.6 (0.2-1.3) mg/dL AST 19 (14-36) U/L ALT 12 (4-34) U/L Alkaline Phosphatase 44 (38-126) U/L Troponin I <0.012 (0.000-0.034) ng/mL Total Protein 7.4 (6.3-8.2) g/dL Albumin 4.6 (3.5-5.0) g/dL TSH 2.310 (0.465-4.680) mIU/L Urine Color Urine Appearance (Clear) Urine pH (5.0-8.0) Ur Specific Gordon (1.001-1.035) Urine Protein (Negative) Urine Glucose (UA) (Negative) Urine Ketones (Negative) Urine Blood (Negative) Urine Nitrite (Negative) Urine Bilirubin (Negative) Urine Urobilinogen (<2.0) mg/dL Ur Leukocyte Esterase (Negative) Urine RBC (0-5) /hpf Urine WBC (0-5) /hpf Urine WBC Clumps (None) /hpf Ur Squamous Epith Cells (0-4) /hpf Amorphous Sediment (None) /hpf Urine Bacteria (None) /hpf Urine Mucus (None) /hpf Urine HCG, Qual (Not Detectd) Urine Opiates Screen (NotDetected) Ur Oxycodone Screen (NotDetected) Urine Methadone Screen (NotDetected) Ur Propoxyphene Screen (NotDetected) Ur Barbiturates Screen (NotDetected) U Tricyclic Antidepress (NotDetected) Ur Phencyclidine Scrn (NotDetected) Ur Amphetamines Screen (NotDetected) U Methamphetamines Scrn (NotDetected) U Benzodiazepines Scrn (NotDetected) Urine Cocaine Screen (NotDetected) U Marijuana (THC) Screen (NotDetected) Influenza Type A (PCR) (Not Detectd) Influenza Type B (PCR) (Not Detectd) RSV (PCR) (Not Detectd) SARS-CoV-2 (PCR) (Not Detectd) Disposition Clinical Impression: BPPV (benign paroxysmal positional vertigo) Disposition: HOME SELF-CARE Instructions (If sedation given, give patient instructions): Vertigo (ED), Benign Paroxysmal Positional Vertigo (ED) Additional Instructions: Return to the emergency department with any new, worsening, or concerning symptoms. You can take the Reglan up to every 6 hours as needed for the vertigo symptoms. You can also take [id number] antihistamines. Look up the half somersault maneuver by Dr. Jazzmine Allison on YouTube for additional treatment options regarding the vertigo. Follow up with your primary care provider in 1-2 days. Prescriptions: Metoclopramide [Reglan] 10 mg PO Q6H PRN #20 tab PRN Reason: Vertigo Is patient prescribed a controlled substance at d/c from ED?: No Referrals: Nonstaff,Physician [Primary Care Provider] - 1-2 days
[2022-12-19 18:16] LABS: Amorphous Sediment,Urine Few /hpf; Appearance,Urine Cloudy (Clear); Bacteria,Urine Moderate /hpf; Bilirubin,Urine Negative (Negative); Blood,Urine Large (Negative); Color,Urine Yellow; Glucose,Urine (UA) Negative (Negative); Ketones,Urine Negative (Negative); Leukocyte Esterase,Urine Large (Negative); Mucus,Urine Many /hpf; Nitrite,Urine Negative (Negative); PH, Urine 5.5 (5.0-8.0); Protein,Urine Trace (Negative); RBC,Urine 4 /hpf (0-5); Specific Gravity,Urine 1.019 (1.001-1.035); Squamous Epithelial Cell,Urine 7 /hpf (0-4); Urobilinogen,Urine <2.0 mg/dL (<2.0); WBC,Urine 45 /hpf (0-5)
[2022-12-19 18:31] LABS: ALT 12 U/L (4-34); AST 19 U/L (14-36); African American GFR (CKD) >90 (>60 ml/min/1.73 sqM); Albumin 4.6 g/dL (3.5-5.0); Alkaline Phosphatase 44 U/L (38-126); Anion Gap 7 mmol/L; Blood Urea Nitrogen 6 mg/dL (7-17); Calcium 9.2 mg/dL (8.4-10.2); Carbon Dioxide 27 mmol/L (22-30); Chloride 103 mmol/L (98-107); Glucose 82 mg/dL (74-99); Non-African American GFR(CKD) >90 (>60 ml/min/1.73 sqM); Potassium 3.9 mmol/L (3.5-5.1); Sodium 137 mmol/L (137-145); Total Bilirubin 0.6 mg/dL (0.2-1.3); Total Protein 7.4 g/dL (6.3-8.2)
[2022-12-19 18:33] LABS: Basophils % (A) 1 %; Eosinophils # (A) 0.1 k/uL (0-0.7); Eosinophils % (A) 2 %; HCT 36.3 % (34.0-46.0); HGB 12.7 gm/dL (11.4-16.0); Lymphocytes # (A) 2.1 k/uL (1.0-4.8); Lymphocytes % (A) 29 %; MCH 29.7 pg (25.0-35.0); MCHC 34.9 g/dL (31.0-37.0); MCV 85.2 fL (80.0-100.0); Monocytes # (A) 0.4 k/uL (0-1.0); Monocytes % (A) 6 %; Neutrophils # (A) 4.3 k/uL (1.3-7.7); Neutrophils % (A) 61 %; Platelet Count 251 k/uL (150-450); RBC 4.26 m/uL (3.80-5.40); RDW 12.2 % (11.5-15.5); WBC 7.1 k/uL (3.8-10.6)
[2022-12-19 19:04] LABS: Amphetamine Screen,Urine Not Detected (NotDetected); Barbiturate Screen,Urine Not Detected (NotDetected); Benzodiazepines Screen,Urine Not Detected (NotDetected); Cocaine Screen,Urine Not Detected (NotDetected); Methadone Screen, Urine Not Detected (NotDetected); Opiate Screen,Urine Not Detected (NotDetected); Oxycodone Screen, Urine Not Detected (NotDetected); Phencyclidine Screen,Urine Not Detected (NotDetected); Tricyclic Antidepressant,Urine Not Detected (NotDetected); Urn Cannabinoid Scrn Not Detected (NotDetected)
== END 2022-12-19 19:30 | disposition home or self-care (01) ==
LOC: EC 16:53
DX: H81.13 Benign paroxysmal vertigo, bilateral (principal); F41.9 Anxiety disorder, unspecified; F32.A Depression, unspecified; F17.290 Nicotine dependence, other tobacco product, uncomplicated; Z88.0 Allergy status to penicillin; Z20.822 Contact with and (suspected) exposure to COVID-19
CPT/HCPCS: 36415; 93005; 80053; 84443; 84484; 85025; 81001; 81025; 80306; 87086; 87636; 99284; 96374; 96361; J2765